=== PATIENT | female | born 1980 | race Caucasian/White ===

== ENCOUNTER 2022-03-18 12:50 | Emergency (ER) | payer SELFPAY ==
[~2022-03-18] VITALS: Ht 157.5 cm; Wt 106.6 kg
[~2022-03-18 12:50] MED LIST: MOTRIN600 MG PO; ONDANSETRON HCL INJ 2MG/ML 2ML 2 MG/ML VIAL IV ONE; SODIUM CHLORIDE FLUSH 10 ML SYR IV PRN
[2022-03-18] MEDS ORDERED: KETOROLAC TROMETHAMINE 30 MG/ML VIAL IV ONE (13:30)
[2022-03-18 13:44] LABS: BASOPHILS # (AUTO) 0.1 (0.0-0.1); BASOPHILS % 0.5 % (0.0-1.0); EOSINOPHILS # (AUTO) 0.2 (0.0-0.4); EOSINOPHILS % 1.8 % (0.0-6.0); HEMATOCRIT 34.2 % (34.2-44.1); HEMOGLOBIN 10.2 g/dL (12.0-16.0); LYMPHOCYTES # (AUTO) 1.3 (1.0-3.2); LYMPHOCYTES % 12.4 % (18.0-39.1); MEAN CORPUSCULAR HEMOGLOBIN 24.1 pg (28-32); MEAN CORPUSCULAR HGB CONC 29.8 g/dL (31-35); MEAN CORPUSCULAR VOLUME 80.7 fL (81-99); MONOCYTES # (AUTO) 0.7 (0.2-0.8); MONOCYTES % 6.6 % (4.4-11.3); NEUTROPHILS # (AUTO) 8.2 (2.1-6.9); NEUTROPHILS % 77.9 % (38.7-80.0); PLATELET COUNT 278 x10e3/uL (140-360); RED BLOOD COUNT 4.24 x10e6/uL (3.6-5.1); RED CELL DISTRIBUTION WIDTH 15.2 % (11.7-14.4)
[2022-03-18 14:01] LABS: ALBUMIN 2.8 g/dL (3.5-5.0); ALBUMIN/GLOBULIN RATIO 0.6 (0.8-2.0); ANION GAP 11.8 mmol/L (8-16); CALCIUM 8.8 mg/dL (8.4-10.2); CREATININE, SERUM 0.83 mg/dL (0.57-1.11); POTASSIUM 3.8 mmol/L (3.5-5.1)
[2022-03-18 14:07] LABS: INR 0.95; PROTHROMBIN TIME 13.5 seconds (11.9-14.5)
[2022-03-18 14:08] LABS: AMPHETAMINES SCREEN,URINE NEGATIVE (NEGATIVE); BENZODIAZEPINES SCREEN,URINE NEGATIVE (NEGATIVE); PARTIAL THROMBOPLASTIN TIME 28.1 seconds (23.8-35.5); PHENCYCLIDINE SCREEN,URINE NEGATIVE (NEGATIVE)
[2022-03-18 14:13] LABS: CLARITY,URINE CLEAR (CLEAR); COLOR,URINE YELLOW (YELLOW)
[2022-03-18 14:14] LABS: KETONES,URINE TRACE (NEGATIVE); LEUKOCYTE ESTERASE ,URINE SMALL (NEGATIVE); NITRITE,URINE NEGATIVE (NEGATIVE); PROTEIN,URINE DIPSTICK >=300 (NEGATIVE); URINE UROBILINOGEN 0.2 mg/dL (0.2 - 1)
[2022-03-18 14:15] LABS: BACTERIA,URINE RARE /HPF; EPITHELIAL CELLS,URINE FEW /LPF; LIPASE 19 U/L (8-78); RBC,URINE 21-50 /HPF (0-5); WBC,URINE (MAN) 21-50 /HPF (0-5)
[2022-03-18] MEDS: SODIUM CHLORIDE 0.9% 1000ML 1,000 ML IV SCH ×2 (14:40→17:33)
[2022-03-18 17:33] VITALS: BP 121/70
== END 2022-03-18 17:34 | disposition home or self-care (01) ==
LOC: ER 13:10
DX: N99.528 Other complication of incontinent external stoma of urinary tract (principal); N39.0 Urinary tract infection, site not specified; M41.9 Scoliosis, unspecified; Z87.442 Personal history of urinary calculi
CPT/HCPCS: 36415; 74176; 80053; 80307; 81001; 83690; 84702; 85025; 85610; 85730; 99284; J1885; J7030